=== PATIENT | female | born 1960 | race American Indian/Alaskan Native ===

== ENCOUNTER 2016-08-11 11:33 | Emergency (ER) | payer OTHER ==
[2016-08-11 12:50] LABS: Basophils % (Auto) 1.1 % (0.0-1.8); Eosinophils % (Auto) 2.6 % (0.0-4.3); Hematocrit 40.3 % (30.3-42.9); Mean Corpuscular HGB Conc 32 % (30-34); Mean Corpuscular Volume 80 fl (79-97); Platelet Count 360 K/mm3 (140-440); Red Blood Count 5.06 M/mm3 (3.65-5.03); Red Cell Distribution Width 14.4 % (13.2-15.2); White Blood Count 8.8 K/mm3 (4.5-11.0)
[2016-08-11 12:52] LABS: Mean Corpuscular Hemoglobin 26 pg (28-32)
[2016-08-11 13:10] LABS: Anion Gap 16 mmol/L; Blood Urea Nitrogen 12 mg/dL (7-17); Calcium 8.7 mg/dL (8.4-10.2); Carbon Dioxide 27 mmol/L (22-30); Chloride 99.2 mmol/L (98-107); Glucose 105 mg/dL (65-100); Potassium 4.3 mmol/L (3.6-5.0); Sodium 138 mmol/L (137-145)
[2016-08-11 13:25] LABS: Bilirubin,Urine NEG (Negative); Blood,Urine NEG (Negative); Ketones,Urine NEG (Negative); Leukocyte Esterase,Urine NEG (Negative); Nitrite,Urine NEG (Negative); Protein,Urine <15 mg/dL mg/dL (Negative); Urobilinogen,Urine < 2.0 mg/dL (<2.0)
--- NOTE | 2016-08-12 04:34 | Emergency Department Report ---
ED Chest Pain HPI - General Chief Complaint: Chest Pain Stated Complaint: CHEST PAINS Time Seen by Provider: 08/12/16 04:19 Source: patient Mode of arrival: Ambulatory Limitations: No Limitations - History of Present Illness Initial Comments: This is a patient who presents with on and off chest pains for the last 2 days. She states that she was at work today and had some discomfort in her chest and felt a little short of breath with this as well. She decided that she should come to the hospital for evaluation. She reports since arriving in the hospital she's been essentially chest pain-free. She states that she is trying to help start lifestyle with diet and exercise. She still does smoke from time to time however. She denies any fevers she denies any cough. She denies any change of her pain with movements. She sometimes feels like food gets stuck in her throat today. She reports increased burping as well. Again there is somewhat of a burning component to this as well. No other radiations reported. No change in the pain with food. - Related Data Allergies Allergy/AdvReac Type Severity Reaction Status Date / Time aspirin Allergy Hives Verified 08/11/16 12:03 TANYA score - Tanya Score Age > 65: (0) No Aspirin use within the Past 7 Days: (0) No 3 or more CAD Risk Factors: (0) No 2 or more Angina events in past 24 hrs: (1) Yes Known CAD with more than 50% Stenosis: (0) No Elevated Cardiac Markers: (0) No ST Deviation Greater than 0.5mm: (0) No TANYA Score: 1 ED Review of Systems ROS: Stated complaint: CHEST PAINS Other details as noted in HPI Comment: All other systems reviewed and negative Constitutional: denies: chills, fever Eyes: denies: eye pain, eye discharge, vision change ENT: denies: ear pain, throat pain Respiratory: denies: cough, shortness of breath, wheezing Cardiovascular: chest pain. denies: palpitations Endocrine: no symptoms reported Gastrointestinal: other (increased burping). denies: abdominal pain, nausea, diarrhea Genitourinary: denies: urgency, dysuria, discharge Musculoskeletal: denies: back pain, joint swelling, arthralgia Skin: denies: rash, lesions Neurological: denies: headache, weakness, paresthesias Psychiatric: denies: anxiety, depression Hematological/Lymphatic: denies: easy bleeding, easy bruising ED Past Medical Hx - Past Medical History Hx Hypertension: Yes Hx Psychiatric Treatment: Yes (anxiety,depression) Additional medical history: hypothyroidism - Surgical History Past Surgical History?: No - Social History Smoking Status: Current Some Day Smoker Substance Use Type: Alcohol ED Physical Exam - General Limitations: No Limitations General appearance: alert, in no apparent distress - Head Head exam: Present: atraumatic, normocephalic - Eye Eye exam: Present: normal appearance, EOMI. Absent: scleral icterus - ENT ENT exam: Present: normal exam, normal orophraynx, mucous membranes moist - Neck Neck exam: Present: normal inspection, full ROM. Absent: meningismus - Respiratory Respiratory exam: Present: normal lung sounds bilaterally. Absent: respiratory distress, wheezes - Cardiovascular Cardiovascular Exam: Present: regular rate, normal rhythm. Absent: systolic murmur, diastolic murmur, rubs, gallop - GI/Abdominal GI/Abdominal exam: Present: soft, normal bowel sounds. Absent: tenderness - Extremities Exam Extremities exam: Present: normal inspection. Absent: tenderness, pedal edema, calf tenderness - Back Exam Back exam: Present: normal inspection. Absent: tenderness, CVA tenderness (R), CVA tenderness (L) - Neurological Exam Neurological exam: Present: alert, oriented X3 - Psychiatric Psychiatric exam: Present: normal affect, normal mood - Skin Skin exam: Present: warm, dry, intact, normal color. Absent: rash ED Course Vital Signs 08/11/16 08/12/16 11:58 05:30 Temperature 98.1 F Pulse Rate 65 68 Respiratory 18 18 Rate Blood Pressure 164/87 Blood Pressure 159/76 [Left] O2 Sat by Pulse 97 99 Oximetry - Reevaluation(s) Reevaluation #1: 08/12/16 04:34 ECG at 1150 on August 11 with sinus rhythm at 67 bpm with a first-degree AV block at 212 ms. Normal QRS and QTC is noted. Normal axis. Does have some mild T- wave abnormalities inferiorly without any reciprocal noted. Reevaluation #2: 08/12/16 20:08 Unremarkable examination here. Patient was well-appearing and comfortable appearing here. She has aspirin allergic. I elected not to give Plavix at this time. She has had enzymes sent several that are all negative. Chest x- ray is also unremarkable here. I do have a question for possible GI etiology given her burping. I did suggest possibly trying a living ranitidine. She is agreeable to trial this. I do feel that this could be cardiac as well. I did give her option first inpatient stay for stressing or follow up as an outpatient with her physician and arrange for cardiac stressing. She is comfortable following up as an outpatient. I feel this is the appropriate next step for here. She agrees to return if she has worsening symptoms in the meantime over the weekend. ED Medical Decision Making - Lab Data Result diagrams: 08/11/16 12:20 08/11/16 12:20 - Radiology Data interpreted by me: cxr negative Critical care attestation.: If time is entered above; I have spent that time in minutes in the direct care of this critically ill patient, excluding procedure time. ED Disposition Clinical Impression: Chest pain Qualifiers: Chest pain type: precordial chest pain Qualified Code(s): R07.2 - Precordial pain Disposition: DISCHARGED TO HOME OR SELFCARE Is pt being admited?: No Does the pt Need Aspirin: No Condition: Stable Instructions: Chest Pain (ED) Additional Instructions: Follow with your doctor to arrange for cardiac stress testing. I have given U the referral for cardiologists who have parking control officer tonight if you prefer as well. Return if worsening. Eat a healthy diet. Referrals: TOM RUIZ [Other] - 3-5 Days CHRIS TRINH MD [Staff Physician] - 3-5 Days Time of Disposition: 05:03
[2016-08-12 06:08] VITALS: BP 159/76
--- NOTE | 2016-08-12 09:44 | XRay Report ---
ROUTINE CHEST, TWO VIEWS: HISTORY: chest pain. The trachea, heart, mediastinal contour, lung thompson and bony thorax are unremarkable. IMPRESSION: Unremarkable chest x-ray.
== END 2016-08-12 05:30 | disposition home or self-care (01) ==
LOC: ED 11:33
DX: R07.2 Precordial pain (principal); I10 Essential (primary) hypertension; F41.9 Anxiety disorder, unspecified; F32.9 Major depressive disorder, single episode, unspecified; E03.9 Hypothyroidism, unspecified; Z88.6 Allergy status to analgesic agent; Z72.0 Tobacco use
CPT/HCPCS: 36415; 71020; 80048; 81001; 84484; 85025; 93005; 93010